=== PATIENT | female | born 1990 | race Caucasian/White ===

== ENCOUNTER 2016-07-04 15:00 | Emergency (ER) | payer OTHER ==
[2016-07-04 16:38] LABS: BASOPHIL 0.2 % (0-2); EOSINOPHIL 0.5 % (0-5); HCT 40.7 % (37.0-47.0); HGB 13.5 g/dl (12.5-16.0); LYMPHOCYTE 13.4 % (15-48); MCH 28.3 pg (25.0-31.0); MCHC 33.2 g/dL (32.0-36.0); MCV 85.3 fL (78.0-100.0); MONOCYTE 5.2 % (0-12); MPV 11.5 fL (6.0-9.5); NEUTROPHIL 80.7 % (41-80); PLT 343 K/uL (150-400); RBC 4.77 M/uL (4.20-5.40); RDW 13.9 % (11.5-14.0); WBC 14.9 K/uL (4.0-10.5)
[2016-07-04 16:48] LABS: ALBUMIN 4.6 g/dL (3.5-5.0); BILIRUBIN - TOTAL 0.4 mg/dL (0.1-1.0); CREATININE 0.6 mg/dL (0.5-1.0); GLOBULIN (CALCULATION) 3.4 g/dL (2.2-4.2); POTASSIUM 3.7 mmol/L (3.5-5.1)
[2016-07-04 17:27] LABS: BENZODIAZEPINES NEGATIVE (NEGATIVE)
[2016-07-04 17:28] LABS: AMPHETAMINES POSITIVE (NEGATIVE); BARBITURATES NEGATIVE (NEGATIVE); COCAINE NEGATIVE (NEGATIVE); MARIJUANA (THC) NEGATIVE (NEGATIVE); METHADONE NEGATIVE (NEGATIVE); TRICYCLIC ANTIDEPRESSANT NEGATIVE (NEGATIVE)
== END 2016-07-04 18:20 | disposition home or self-care (01) ==
LOC: FER 15:00
PROVIDERS: Nurse Practitioner
DX: F15.10 Other stimulant abuse, uncomplicated (principal); R51 Headache; R20.2 Paresthesia of skin; R00.2 Palpitations; R22.40 Localized swelling, mass and lump, unspecified lower limb; Z88.1 Allergy status to other antibiotic agents
CPT/HCPCS: 36415; 80053; 80305; 85025; 87804; 87899; 93005

== ENCOUNTER 2016-10-03 15:15 | Emergency (ER) | payer OTHER ==
[2016-10-03 16:07] LABS: BILIRUBIN NEGATIVE (NEGATIVE); BLOOD 3+ Ery/uL (NEGATIVE); CLARITY CLEAR (CLEAR); COLOR YELLOW (YELLOW); GLUCOSE (U) NORMAL (NORMAL); KETONE (U) NEGATIVE (NEGATIVE); LEUKOCYTES NEGATIVE Leu/uL (NEGATIVE); NITRITE NEGATIVE (NEGATIVE); PROTEIN TRACE (LOW) mg/dL (NEGATIVE); UROBILINOGEN 0.2 mg/dL (0.2-1.0)
[2016-10-03 16:11] LABS: BACTERIA TRACE
== END 2016-10-03 16:47 | disposition home or self-care (01) ==
LOC: FER 15:15
PROVIDERS: Nurse Practitioner Family
DX: F15.90 Other stimulant use, unspecified, uncomplicated (principal); Z88.1 Allergy status to other antibiotic agents
CPT/HCPCS: 81001; 99284